=== PATIENT | male | born 1945 | race Two or more races ===

== ENCOUNTER → 2021-08-22 08:00 | Outpatient (CLI) | payer OTHER ==
[~2021-08-22] VITALS: Ht 170.2 cm; Wt 48.1 kg
[~2021-08-22 08:00] MED LIST: CIPRO250 MG PO; COZAAR50 MG PO; FOLIC ACID1 MG; INTEGRA F CAPS1 EAC1; MULTIPLE VITAM1 EAC2 PO; TAMS0.4C PO; VITAMIN B122500 MCG
== END | disposition home or self-care (01) ==
LOC: LAB 08:00 → SURH 08-24 11:45 → EDSTATUS 08-24 11:45
PROVIDERS: ATTEND Surgery
DX: R93.5 Abnormal findings on diagnostic imaging of other abdominal regions, including retroperitoneum (principal); R97.0 Elevated carcinoembryonic antigen [CEA]; D37.5 Neoplasm of uncertain behavior of rectum; K92.1 Melena; C18.0 Malignant neoplasm of cecum; R59.0 Localized enlarged lymph nodes

== ENCOUNTER 2021-08-22 23:37 | Inpatient (IN) | payer OTHER ==
[~2021-08-22] VITALS: Ht 170.2 cm; Wt 72.6 kg
[~2021-08-22 23:37] MED LIST changes: -FOLIC ACID1 MG; -INTEGRA F CAPS1 EAC1; -VITAMIN B122500 MCG
--- NOTE | 2021-08-22 23:52 | NUR ---
SE RECIBE PTE ALERTA Y ORIENTADO POR CHUCKY. FAMILIARES REFIERE QUE EL PTE SE DESPERTO SUDOROSO, CON PROBLEMAS PARA HABLAR, DEBILIDAD Y ORINADO. PTE REFIERE QUE PRESENTA SINTOMAS DESDE HACE REYES HORA.
--- NOTE | 2021-08-23 00:50 | NUR ---
XRUZ EDUCA A PTE SOBRE TX MEDICO. SE ERIC MUESTRAS DE LABORATORIO UTILIZANDO MEDIDAS ASEPTICAS. SE COLOCA H/L A PTE. SE ADMINSTRAN MEDICAMENTOS A PTE LOS CUALES TOLERA.
--- NOTE | 2021-08-23 05:30 | NUR ---
SE LE NOTIFICA A BIRD ALICEA DE [facility] AUXILIO MUTUO.PARA RECOJIDO DE REQUISICION.
--- NOTE | 2021-08-23 08:24 | NUR ---
8:30AM SE REALIZA LLAMADA A [place] Y SE LOGRA CONTACTO CON CEDRIC CUAL NOTIFICA UN[place] NO RESENDIZ LLEGADO AL MOMENTO. SE MANTIENE A PACIENTE EN OBSERVACION Y MONITOREO NIK. PACIENTE AL MOMENTO ALERTA, CONCIENTE Y ESTABLE DENTRO DE JAIMES CONDICION.
--- NOTE | 2021-08-23 10:28 | NUR ---
paciente alerta, conciente y estable al momento paciente SE MANTIENE EN MONITOERO NIK, PACIENTE CON 2 VENOPUNCIONES Y TERAPIA INTRAVENOSA PATENTE.
[2021-08-23] MEDS ORDERED: FOLIC ACID1 MG (13:55)
[2021-08-23] MEDS ORDERED: INTEGRA F CAPS1 EAC1 (13:55)
== END 2021-08-27 23:08 | disposition home or self-care (01) | DRG 330 ==
LOC: ER 23:37 → SURH 08-23 12:38
PROVIDERS: Surgery; ADMIT Internal Medicine; ATTEND Internal Medicine
PROC: 0FB04ZX Excision of Liver, Percutaneous Endoscopic Approach, Diagnostic (ICD-10-PCS; 2021-08-24)
PROC: 0DBU4ZZ Excision of Omentum, Percutaneous Endoscopic Approach (ICD-10-PCS; 2021-08-24)
PROC: 30233N1 Transfusion of Nonautologous Red Blood Cells into Peripheral Vein, Percutaneous Approach (ICD-10-PCS; 2021-08-24)
PROC: 0D1B4Z4 Bypass Ileum to Cutaneous, Percutaneous Endoscopic Approach (ICD-10-PCS; principal; 2021-08-24 10:45)
DX: C18.0 Malignant neoplasm of cecum (principal); C78.7 Secondary malignant neoplasm of liver and intrahepatic bile duct; C78.6 Secondary malignant neoplasm of retroperitoneum and peritoneum; K92.1 Melena; D63.0 Anemia in neoplastic disease; I10 Essential (primary) hypertension; Z20.822 Contact with and (suspected) exposure to COVID-19; E16.1 Other hypoglycemia; D75.838 Other thrombocytosis

== ENCOUNTER 2021-09-01 09:10 | Emergency (ER) | payer OTHER ==
[~2021-09-01] VITALS: Ht 170.2 cm; Wt 69.9 kg
[~2021-09-01 09:10] MED LIST changes: +FOLIC ACID1 MG; +INTEGRA F CAPS1 EAC1
[2021-09-01] MEDS ORDERED: VITAMIN B122500 MCG (09:23)
== END 2021-09-01 18:00 | disposition home or self-care (01) ==
LOC: ER 09:10
DX: R11.10 Vomiting, unspecified (principal); Z85.9 Personal history of malignant neoplasm, unspecified; Z98.890 Other specified postprocedural states